=== PATIENT | male | born 1960 | race Two or more races ===

== ENCOUNTER 2016-03-29 03:51 | Emergency (ER) | payer MEDICAID ==
[~2016-03-29] VITALS: Ht 175.3 cm; Wt 131.5 kg
[2016-03-29 05:09] LABS: Basophils # (auto) 0 uL; Basophils % (auto) 0.6 % (0.0-2.0); Eosinophils # (auto) 0.1 uL; Eosinophils % (auto) 1.5 % (0.0-7.0); Hematocrit 53.5 % (41.0-53.0); Hemoglobin 17.5 g/dL (13.5-17.5); Lymphocytes # (auto) 2.7 uL; Lymphocytes % (auto) 44.2 % (10.0-50.0); Mean Corpuscular Hemoglobin 29.6 pg (28.0-32.0); Mean Corpuscular Hgb Conc. 32.7 g/dL (32.0-36.0); Mean Corpuscular Volume 90.8 fL (80.0-100.0); Mean Platelet Volume 7.8 fL (7.4-10.4); Monocytes # (auto) 0.5 uL; Monocytes % (auto) 8.4 % (0.0-12.0); Neutrophils # (auto) 2.8 uL; Neutrophils % (auto) 45.3 % (37.0-80.0); Platelet Count (auto) 226 10^3/uL (140-450); Red Cell Distribution Width 14.3 % (11.6-16.0); White Blood Cell 6.2 10^3/uL (4.4-10.8)
[2016-03-29 05:31] LABS: Albumin 4.1 g/dL (3.4-5.0); BUN/Creatinine Ratio 20.7; Calcium 9.4 mg/dL (8.5-10.1); Magnesium 2.2 mg/dL (1.6-2.6); Potassium 4.2 mmol/L (3.5-5.1)
[2016-03-29 05:34] LABS: Bilirubin, Total 0.7 mg/dL (0.2-1.0); Total Protein 7.6 g/dL (6.4-8.2)
[2016-03-29 05:40] LABS: B-Type Natriuretic Peptide 3.62 pg/mL (0-100)
[2016-03-29 05:43] LABS: Temperature: 20.6 C (20.0-25.0)
[2016-03-29] MEDS ORDERED: FEBU80TA PO (07:29)
[2016-03-29] MEDS ORDERED: FLUT50SP13 (07:29)
[2016-03-29] MEDS ORDERED: ALBUAER3 IN (07:29)
[2016-03-29] MEDS ORDERED: ASPI-231 PO (07:29)
[2016-03-29] MEDS ORDERED: AMIT PO (07:35)
[2016-03-29] MEDS ORDERED: MORP1CAP30 PO (07:35)
[2016-03-29] MEDS ORDERED: BACL20TA PO (07:35)
[2016-03-29] MEDS ORDERED: TRIA75TA55 PO (07:35)
[2016-03-29] MEDS ORDERED: AMOX500C2 PO (07:36)
[2016-03-29] MEDS ORDERED: OMEP20CA5 PO (07:36)
[2016-03-29] MEDS ORDERED: ALL300T PO (07:36)
[2016-03-29] MEDS ORDERED: NOR5T PO (07:36)
[2016-03-29] MEDS ORDERED: LISI40TA PO (07:37)
[2016-03-29] MEDS ORDERED: NAP500T PO (07:37)
[2016-03-29] MEDS ORDERED: CHOL20007 PO (07:37)
[2016-03-29 07:42] LABS: Urine RBC None Seen /hpf (0 - 3)
[2016-03-29 08:15] LABS: Urine Bilirubin Negative (Negative); Urine Blood Negative /uL (Negative); Urine Color Yellow (Yellow); Urine Glucose Normal (Normal); Urine Ketone Negative (Negative); Urine Nitrite Negative (Negative); Urine Urobilinogen Normal (Negative)
[2016-03-29 09:50] VITALS: BP 142/81
== END 2016-03-29 10:09 | disposition home or self-care (01) ==
LOC: ER 03:54
DX: F41.8 Other specified anxiety disorders (principal); G47.00 Insomnia, unspecified; E66.9 Obesity, unspecified; Z68.41 Body mass index [BMI] 40.0-44.9, adult; M10.9 Gout, unspecified; E78.5 Hyperlipidemia, unspecified; I10 Essential (primary) hypertension; F12.10 Cannabis abuse, uncomplicated; G47.30 Sleep apnea, unspecified; Z79.899 Other long term (current) drug therapy
CPT/HCPCS: 36415; 71020; 80053; 81001; 83735; 83880; 84484; 85025; 93005; 99285; G0434

== ENCOUNTER 2016-05-01 19:58 | Emergency (ER) | payer MEDICAID ==
[~2016-05-01] VITALS: Ht 177.8 cm; Wt 108.9 kg
[~2016-05-01 19:58] MED LIST: ALBUAER3 IN; ALL300T PO; AMIT PO; AMOX500C2 PO; ASPI-231 PO; BACL20TA PO; CHOL20007 PO; FEBU80TA PO; FLUT50SP13; LISI40TA PO; MORP1CAP30 PO; NAP500T PO; NOR5T PO; OMEP20CA5 PO; TRIA75TA55 PO
[2016-05-01 20:48] LABS: Basophils # (auto) 0.1 uL; Basophils % (auto) 0.7 % (0.0-2.0); Eosinophils # (auto) 0 uL; Eosinophils % (auto) 0.6 % (0.0-7.0); Hematocrit 53.7 % (41.0-53.0); Lymphocytes # (auto) 3.1 uL; Lymphocytes % (auto) 42.1 % (10.0-50.0); Mean Corpuscular Hemoglobin 28.7 pg (28.0-32.0); Mean Corpuscular Hgb Conc. 31.6 g/dL (32.0-36.0); Mean Corpuscular Volume 90.7 fL (80.0-100.0); Mean Platelet Volume 7.7 fL (7.4-10.4); Monocytes # (auto) 0.3 uL; Monocytes % (auto) 4.1 % (0.0-12.0); Neutrophils # (auto) 3.8 uL; Neutrophils % (auto) 52.5 % (37.0-80.0); Platelet Count (auto) 326 10^3/uL (140-450); Red Cell Distribution Width 14.1 % (11.6-16.0); White Blood Cell 7.3 10^3/uL (4.4-10.8)
[2016-05-01 21:04] LABS: Albumin 4.5 g/dL (3.4-5.0); Anion Gap 13 (5-15); BUN/Creatinine Ratio 15.3; Blood Urea Nitrogen 18 mg/dL (7-18); Calcium 8.9 mg/dL (8.5-10.1); Carbon Dioxide 23 mmol/L (21-32); Chloride 102 mmol/L (98-107); GFR African American 83 mL/min; GFR Non-African American 69 mL/min; Glucose 168 mg/dL (74-106); Potassium 3.3 mmol/L (3.5-5.1); Salicylate < 1.7 mg/dL (2.8-20.0); Sodium 138 mmol/L (136-145)
[2016-05-01 21:13] LABS: Alkaline Phosphatase 59 U/L (45-117); Aspartate Aminotransferase 34 U/L (15-37); Total Protein 8.1 g/dL (6.4-8.2)
[2016-05-01 21:16] LABS: Acetaminophen < 2.0 ug/mL (10-30)
[2016-05-01 22:30] LABS: Urine RBC None Seen /hpf (0 - 3)
[2016-05-01] MEDS ORDERED: LORazepam 0.5 MG TAB PO ONE (22:45)
[2016-05-01 23:20] LABS: Urine Bilirubin Negative (Negative); Urine Blood Negative /uL (Negative); Urine Color Yellow (Yellow); Urine Glucose Normal (Normal); Urine Ketone TRACE (Negative); Urine Mucus FEW (None Seen); Urine Nitrite Negative (Negative); Urine Urobilinogen Normal (Negative); Urine pH 5.5 (5.0-8.0)
[2016-05-02] MEDS ORDERED: OLANZapine 5 MG TAB PO ONE (11:30)
[2016-05-02] MEDS ORDERED: LORazepam 2MG/ML-1ML VIAL IM ONE (12:45)
[2016-05-02] MEDS ORDERED: HALOPERIDOL LACTATE 5 MG/ML INJ VIAL IM ONE (12:45)
[2016-05-02] MEDS ORDERED: diphenhdrAMINE HCL 50 MG/1 ML VL IV ONE (12:45)
[2016-05-02] MEDS ORDERED: diphenhdrAMINE HCL 50 MG/1 ML VL IM ONE (13:00)
[2016-05-03] MEDS ORDERED: ASPirin 325 MG TAB PO ONE (03:15)
[2016-05-03] MEDS ORDERED: ALPRAZolam 0.5 MG TAB PO ONE (22:15)
[2016-05-05] MEDS ORDERED: OLANZapine 5 MG TAB PO PRN (02:00)
[2016-05-05] MEDS ORDERED: BACLOFEN 10 MG TAB PO SCH (06:00)
[2016-05-05] MEDS ORDERED: AMITRIPTYLINE HCL 25 MG TAB PO ONE (09:45)
[2016-05-05] MEDS ORDERED: NAPROXEN 500 MG TAB PO ONE (09:45)
[2016-05-05] MEDS ORDERED: OMEPRAZOLE 20MG/10ML ORAL SUSP PO ONE (09:45)
[2016-05-05] MEDS ORDERED: NAPROXEN 500 MG TAB ONE (09:48)
[2016-05-05] MEDS ORDERED: LISINOPRIL 20 MG TAB ONE (09:49)
[2016-05-05] MEDS ORDERED: ALLOPURINOL 300 MG TAB ONE (09:52)
[2016-05-05] MEDS ORDERED: PANTOPRAZOLE 40 MG TAB PO ONE ×3 (09:52→10:00)
[2016-05-05] MEDS ORDERED: NAPROXEN 500 MG TAB PO SCH (10:00)
[2016-05-05] MEDS ORDERED: LISINOPRIL 20 MG TAB PO SCH (10:00)
[2016-05-05] MEDS ORDERED: ALLOPURINOL 300 MG TAB PO SCH (10:00)
[2016-05-05 10:03] VITALS: BP 130/84
[2016-05-05] MEDS ORDERED: AMITRIPTYLINE HCL 10 MG TAB PO SCH (22:00)
== END 2016-05-05 13:21 | disposition home or self-care (01) ==
LOC: ER 20:06
DX: F41.9 Anxiety disorder, unspecified (principal); R45.851 Suicidal ideations; F19.10 Other psychoactive substance abuse, uncomplicated; R45.1 Restlessness and agitation; F22 Delusional disorders; M10.9 Gout, unspecified; E78.5 Hyperlipidemia, unspecified; I10 Essential (primary) hypertension; F12.10 Cannabis abuse, uncomplicated
CPT/HCPCS: 36415; 80053; 80320; 80329; 81001; 85025; 93005; 94761; 96372; 99285; G0434; J1630; J2060